=== PATIENT | male | born 1960 | race Caucasian/White ===

== ENCOUNTER 2018-11-26 15:05 | Outpatient (REF) | payer BC, SELFPAY ==
[2018-11-28 10:09] LABS: PSA, Screening 0.5 ng/ml (0-3.5)
== END 2018-11-26 15:25 ==
LOC: NCHCN 15:05
PROVIDERS: PCP Physician Assistant; Visit Provider Physician Assistant Medical
DX: Z12.5 Encounter for screening for malignant neoplasm of prostate (principal); N40.0 Benign prostatic hyperplasia without lower urinary tract symptoms
CPT/HCPCS: 84153

== ENCOUNTER 2019-04-10 22:14 | Outpatient (REF) | payer BC, SELFPAY ==
[2019-04-10 19:26] LABS: Anion Gap 9.1 mmol/L (3-11); BUN 18 mg/dL (7-18); CO2 27.9 mmol/L (21.0-32.0); CREATININE 0.89 mg/dL (0.70-1.30); Chloride 104 mmol/L (98-107); Glucose 100 mg/dL (70-100); Potassium 4.1 mmol/L (3.5-5.1); Sodium 141 mmol/L (136-145)
== END 2019-04-10 22:34 ==
LOC: NCHCN 22:14
PROVIDERS: PCP Physician Assistant; Visit Provider Physician Assistant Medical
DX: I10 Essential (primary) hypertension (principal)
CPT/HCPCS: 80048